=== PATIENT | male | born 1995 | race Caucasian/White ===

== ENCOUNTER 2019-09-09 15:21 | Emergency (ER) | payer OTHER ==
[~2019-09-09] VITALS: Ht 182.9 cm; Wt 109.1 kg
[~2019-09-09 15:21] MED LIST: AMOXICILLIN 8751 TAB PO; LORTAB 5/500 501 TAB PO; NO HOME MEDICATIONS
[2019-09-09 15:32] VITALS: BP 141/89; TEMP 97
[2019-09-09 15:47] LABS: COLLECTION METHOD CLEAN CATCH
[2019-09-09 16:07] LABS: MUCOUS Present /lpf; PH 6 (5-8); SQUAMOUS EPITHELIAL None Seen /hpf; URINE APPEARANCE Hazy; URINE BACTERIA Rare /hpf; URINE BILIRUBIN Negative (NEGATIVE); URINE BLOOD Negative (NEGATIVE); URINE COLOR Yellow; URINE GLUCOSE Negative (NEGATIVE); URINE KETONE Negative (NEGATIVE); URINE LEUKOCYTE ESTERASE Negative (NEGATIVE); URINE NITRATE Negative (NEGATIVE); URINE PROTEIN(semi-quant) Negative (NEGATIVE); URINE RBC 0-2 /hpf; URINE UROBILINOGEN Negative (NEGATIVE)
[2019-09-09] MEDS ORDERED: NORCO 325 MG-51 TAB PO (17:30)
[2019-09-09] MEDS ORDERED: CIPRO 500MG TA500 MG PO (17:30)
[2019-09-09 18:03] VITALS: PULSE 77
== END 2019-09-09 18:03 | disposition home or self-care (01) ==
LOC: COL.ER 15:21
PROVIDERS: Emergency Medicine
DX: N45.1 Epididymitis (principal); F17.210 Nicotine dependence, cigarettes, uncomplicated

== ENCOUNTER 2020-04-03 19:03 | Emergency (ER) | payer OTHER ==
[~2020-04-03] VITALS: Ht 185.4 cm; Wt 102.3 kg
[~2020-04-03 19:03] MED LIST changes: +CIPRO 500MG TA500 MG PO; +NORCO 325 MG-51 TAB PO
[2020-04-03 21:30] VITALS: BP 148/80; PULSE 78; TEMP 98.1
[2020-04-03] MEDS ORDERED: CRUTCHES MC (22:12)
== END 2020-04-03 21:39 | disposition home or self-care (01) ==
LOC: COL.ER 19:03
DX: S82.892A Other fracture of left lower leg, initial encounter for closed fracture (principal); F17.210 Nicotine dependence, cigarettes, uncomplicated; W19.XXXA Unspecified fall, initial encounter; X50.1XXA Overexertion from prolonged static or awkward postures, initial encounter
CPT/HCPCS: Q4045

== ENCOUNTER 2022-06-16 17:47 | Emergency (ER) | payer SELFPAY ==
[~2022-06-16] VITALS: Ht 182.9 cm; Wt 95.5 kg
[~2022-06-16 17:47] MED LIST changes: +CRUTCHES MC
[2022-06-16 17:59] VITALS: TEMP 99.3
[2022-06-16 18:26] LABS: BASO % 0.4 % (0.0-2.0); EOS # 0.2 K/mm3 (0.0-0.7); EOS % 2.5 % (0.0-4.0); GRAN # 4.6 K/mm3 (1.4-6.5); GRAN % 64.9 % (42.2-75.2); HEMATOCRIT 45.2 % (42.0-52.0); HEMOGLOBIN 15.5 g/dl (13.5-18.0); LYMPH # 1.8 K/mm3 (1.2-3.4); LYMPH % 25.1 % (20.0-51.0); MEAN CELL VOLUME 87 fl (80.0-100.0); MEAN CORPUSCULAR HEMOGLOBIN 30 pg (27-31); MEAN CORPUSCULAR HGB CONC 34 g/dl (33.0-37.0); MEAN PLATELET VOLUME 11.1 fl (7.4-10.4); MONO # 0.5 K/mm3 (0.1-0.6); MONO % 6.8 % (1.7-9.3); PLATELET COUNT 181 K/mm3 (130-400); RED BLOOD COUNT 5.21 M/mm3 (4.20-5.60); REDCELL DISTRIBUTION WIDTH-CV 11.8 % (11.5-14.5)
[2022-06-16 18:41] LABS: ALANINE AMINOTRANSFERASE 19 U/L (0-55); ALBUMIN 4.8 gm/dL (3.5-5.0); ALKALINE PHOSPHATASE 79 U/L (40-150); ANION GAP 13 mmol/L (7-16); AST,SGOT 14 U/L (5-34); BILIRUBIN,TOTAL 0.9 mg/dL (0.2-1.2); BLOOD UREA NITROGEN 12 mg/dL (9-21); CALCIUM 9.5 mg/dL (8.4-10.2); CARBON DIOXIDE 21 mmol/L (22-29); CHLORIDE 106 mmol/L (98-107); CREATININE, serum 0.83 mg/dL (0.72-1.25); GLUCOSE 94 mg/dL (70-99); POTASSIUM 3.8 mmol/L (3.5-4.5); SODIUM 140 mmol/L (136-145); TOTAL PROTEIN 7.9 gm/dL (6.2-8.1)
[2022-06-16 19:02] LABS: TROPONIN-I < 0.010 ng/mL (0.00-0.033)
[2022-06-16 19:48] VITALS: BP 111/80; PULSE 64
== END 2022-06-16 19:48 | disposition home or self-care (01) ==
LOC: COL.ER 17:47
PROVIDERS: Emergency Medicine
DX: R00.2 Palpitations (principal); Z87.891 Personal history of nicotine dependence
CPT/HCPCS: J7030

== ENCOUNTER 2022-06-24 21:50 | Emergency (ER) | payer SELFPAY ==
[~2022-06-24] VITALS: Ht 182.9 cm; Wt 93.2 kg
[2022-06-24 22:22] LABS: BASO % 0.3 % (0.0-2.0); EOS # 0.1 K/mm3 (0.0-0.7); EOS % 1.3 % (0.0-4.0); GRAN % 81.8 % (42.2-75.2); HEMATOCRIT 45.4 % (42.0-52.0); LYMPH # 0.6 K/mm3 (1.2-3.4); LYMPH % 9.4 % (20.0-51.0); MEAN CELL VOLUME 85 fl (80.0-100.0); MEAN CORPUSCULAR HEMOGLOBIN 30 pg (27-31); MEAN CORPUSCULAR HGB CONC 35 g/dl (33.0-37.0); MEAN PLATELET VOLUME 11.2 fl (7.4-10.4); MONO # 0.4 K/mm3 (0.1-0.6); MONO % 6.9 % (1.7-9.3); PLATELET COUNT 161 K/mm3 (130-400); RED BLOOD COUNT 5.33 M/mm3 (4.20-5.60); REDCELL DISTRIBUTION WIDTH-CV 11.7 % (11.5-14.5)
[2022-06-24 22:39] LABS: ALBUMIN 4.6 gm/dL (3.5-5.0); BILIRUBIN,TOTAL 0.9 mg/dL (0.2-1.2); CALCIUM 10.1 mg/dL (8.4-10.2); CREATININE, serum 1.23 mg/dL (0.72-1.25); POTASSIUM 3.7 mmol/L (3.5-4.5); TOTAL PROTEIN 8.2 gm/dL (6.2-8.1)
[2022-06-24 22:45] LABS: TROPONIN-I 0.016 ng/mL (0.00-0.033)
[2022-06-25 00:25] VITALS: BP 107/76; PULSE 111; TEMP 101.2
== END 2022-06-25 00:28 | disposition home or self-care (01) ==
LOC: COL.ER 21:50
PROVIDERS: Emergency Medicine
DX: U07.1 COVID-19 (principal)
CPT/HCPCS: J2405; J7030